=== PATIENT | male | born 1945 | race Caucasian/White ===

== ENCOUNTER → 2018-04-04 | Outpatient (CLI) | payer MEDICARE ==
[2018-04-04 10:32] LABS: BASOPHILS % (AUTO) 0 % (0-1); EOSINOPHILS # (AUTO) 0.17 x10^3/uL (0-0.4); EOSINOPHILS % (AUTO) 2 % (1-7); LYMPHOCYTES # (AUTO) 1.82 x10^3/uL (1-3.4); LYMPHOCYTES % (AUTO) 20 % (22-44); MD SCAN; MEAN CORPUSCULAR HEMOGLOBIN 26.2 pg (27.5-34.5); MEAN CORPUSCULAR HGB CONC 31.3 g/dL (33.2-36.2); MEAN CORPUSCULAR VOLUME 83.8 fL (81-97); MEAN PLATELET VOLUME 8.7 fL (7.4-10.4); MONOCYTES # (AUTO) 0.97 x10^3/uL (0.2-0.8); MONOCYTES % (AUTO) 11 % (2-9); NEUTROPHILS # (AUTO) 6.35 x10^3/uL (1.8-6.8); NEUTROPHILS % (AUTO) 68 % (42-75); PLATELET COUNT 217 x10^3/uL (130-400); RED BLOOD COUNT 6.85 x10^6/uL (4.38-5.82); RED CELL DISTRIBUTION WIDTH 17.2 % (9.4-14.8)
[2018-04-04 10:35] LABS: ANION GAP 5 mmol/L (5-15); CALCIUM 8.9 mg/dL (8.5-10.1); CHLORIDE 99 mmol/L (98-107); CREATININE 1.16 mg/dL (0.7-1.3); INTERNATIONAL NORMALIZED RATIO 1.07 (0.93-1.1); PROTHROMBIN TIME 11.3 Seconds (9.6-11.5)
== END | disposition home or self-care (01) ==
LOC: CVU 08:27
PROVIDERS: ATTEND Internal Medicine Cardiovascular Disease
DX: I67.82 Cerebral ischemia (principal); I25.10 Atherosclerotic heart disease of native coronary artery without angina pectoris; I10 Essential (primary) hypertension; R06.02 Shortness of breath; F17.211 Nicotine dependence, cigarettes, in remission
CPT/HCPCS: 36415; 80048; 83880; 85025; 85610; 85730; 93880; 93978

== ENCOUNTER 2018-04-06 09:59 | Day surgery (SDC) | payer MEDICARE ==
[~2018-04-06] VITALS: Ht 167.6 cm; Wt 91.8 kg
[2018-04-06] MEDS ORDERED: SODIUM CHLORIDE 0.9% 1,000 ML IV ONE (12:41)
[2018-04-06 12:43] VITALS: BP 124/76
[2018-04-06] MEDS ORDERED: PLEASE ENTER HEIGHT AND WEIGHT MC SCH (13:00)
[2018-04-06] MEDS ORDERED: DIPHENHYDRAMINE 50 MG/ML, 1ML ONE (13:12)
[2018-04-06] MEDS ORDERED: GABA600T2 PO (13:22)
[2018-04-06] MEDS ORDERED: RANI300T PO (13:22)
[2018-04-06] MEDS ORDERED: POTA10TA6 PO (13:22)
[2018-04-06] MEDS ORDERED: HYDR-3245 PO (13:22)
[2018-04-06] MEDS ORDERED: ATOR40TA78 PO (13:22)
[2018-04-06] MEDS ORDERED: FURO-93 PO (13:22)
[2018-04-06] MEDS ORDERED: GABA300C10 PO (13:22)
[2018-04-06] MEDS ORDERED: METF500T17 PO (13:22)
[2018-04-06] MEDS ORDERED: LISI-170 PO (13:22)
[2018-04-06] MEDS ORDERED: DIPHENHYDRAMINE 50 MG/ML, 1ML IVPush ONE (13:30)
[2018-04-06] MEDS ORDERED: MIDAZOLAM 1 MG/ML, 5ML ONE (14:30)
[2018-04-06] MEDS ORDERED: FENTANYL PF 100 MCG/2ML ONE (14:30)
[2018-04-06] MEDS ORDERED: VERAPAMIL 2.5 MG/ML, 2ML ONE (14:30)
[2018-04-06] MEDS ORDERED: HEPARIN 1,000 UNITS/ML, 10ML ONE (14:31)
[2018-04-06] MEDS ORDERED: LIDOCAINE 2%, 20ML ONE (14:31)
[2018-04-06] MEDS ORDERED: SODIUM CHLORIDE 0.9% 1,000 ML IV SCH (15:39)
== END 2018-04-06 18:45 | disposition home or self-care (01) ==
LOC: CACL 09:59
PROVIDERS: ATTEND Internal Medicine Cardiovascular Disease
DX: I27.23 Pulmonary hypertension due to lung diseases and hypoxia (principal); I25.10 Atherosclerotic heart disease of native coronary artery without angina pectoris; F17.211 Nicotine dependence, cigarettes, in remission; E78.2 Mixed hyperlipidemia; J44.9 Chronic obstructive pulmonary disease, unspecified; I10 Essential (primary) hypertension; E11.9 Type 2 diabetes mellitus without complications; Z87.891 Personal history of nicotine dependence
CPT/HCPCS: 93460; 99156; 99157; C1769; C1894; J1200; J2250; J3010; J3490; J7030; Q9967; J1644